=== PATIENT | female | born 1985 | race Caucasian/White ===

== ENCOUNTER 2016-09-02 21:00 | Emergency (ER) | payer MEDICAID ==
[2016-09-03 01:31] VITALS: BP 130/91
== END 2016-09-03 01:31 | disposition home or self-care (01) ==
LOC: ED 21:00
DX: G43.909 Migraine, unspecified, not intractable, without status migrainosus (principal); I10 Essential (primary) hypertension; H53.143 Visual discomfort, bilateral; R05 Cough; Z79.899 Other long term (current) drug therapy
CPT/HCPCS: J1885; J2765